=== PATIENT | male | born 1990 | race Caucasian/White ===

== ENCOUNTER 2017-12-08 09:18 | Emergency (ER) | payer OTHER ==
[~2017-12-08] VITALS: Ht 167.6 cm; Wt 84.1 kg
[2017-12-08] MEDS ORDERED: DIPH1POW20 PO (09:34)
[2017-12-08] MEDS ORDERED: OMEP10 PO (09:34)
[2017-12-08] MEDS: ACETAMINOPHEN 325 MG TABLET PO ONE (10:48)
[2017-12-08] MEDS: SODIUM CHLORIDE 0.9% 1,000 ML IV ONE (10:48)
[2017-12-08 12:21] LABS: RAPID GROUP A STREP POSITIVE (NEGATIVE)
[2017-12-08] MEDS: PENICILLIN PROCAINE IM ONE (12:51)
[2017-12-08 13:00] VITALS: BP 127/73
[2017-12-08] MEDS: PENICILLIN G BENZATHINE LA 1,200,000 UNITS/2 ML SYRINGE IM ONE (13:00)
[2017-12-08 13:56] LABS: INFLUENZA TYPE A NEGATIVE FOR TYPE A (NEGATIVE); INFLUENZA TYPE B NEGATIVE FOR TYPE B (NEGATIVE)
== END 2017-12-08 13:14 | disposition home or self-care (01) ==
LOC: EMS 09:19
DX: J02.0 Streptococcal pharyngitis (principal)
CPT/HCPCS: 87430; 87804; 96360; 96372; 99284; J0561; J7030; J2510